=== PATIENT | female | born 1985 | race Caucasian/White ===

== ENCOUNTER 2025-02-17 11:20 | Outpatient (CLI) | payer OTHER, SELFPAY ==
--- NOTE | ~2025-02-17 | MM_ITS ---
EXAMINATION: MM screening [place] [facility] w abdullahi HISTORY: Screening TECHNIQUE: Craniocaudal and mediolateral oblique 3-D tomosynthesis images were obtained and synthetic 2-D images were generated. CAD analysis was submitted and interpreted. COMPARISON: No prior mammogram is available for comparison at this institution. BREAST PARENCHYMAL COMPOSITION: The breasts are extremely dense, which lowers the sensitivity of mammography. FINDINGS: No suspicious calcifications or architectural distortion. Focal asymmetry in the upper left breast at the 12:00 position, posterior depth. In addition, there is an asymmetry in the lower left breast, posterior depth, seen in the left MLO projection. Focal asymmetry in the upper-outer quadrant of the right breast, posterior depth. In addition, there is an asymmetry in the medial right breast, middle depth, seen in the right CC projection. IMPRESSION: 1. Focal asymmetry in the upper left breast at the 12:00 position, posterior depth. In addition, there is an asymmetry in the lower left breast, posterior depth, seen in the left MLO projection. The study is incomplete. A diagnostic mammogram and a diagnostic ultrasound are recommended. 2. Focal asymmetry in the upper-outer quadrant of the right breast, posterior depth. In addition, there is an asymmetry in the medial right breast, middle depth, seen in the right CC projection. The study is incomplete. A diagnostic mammogram and a diagnostic ultrasound are recommended. BI-RADS 0: Incomplete-Need additional imaging evaluation. Reviewed, dictated and finalized at location Q. IMPRESSION: 1. Focal asymmetry in the upper left breast at the 12:00 position, posterior de pth. In addition, there is an asymmetry in the lower left breast, posterior dep th, seen in the left MLO projection. The study is incomplete. A diagnostic mamm ogram and a diagnostic ultrasound are recommended. 2. Focal asymmetry in the upper-outer quadrant of the right breast, posterior d epth. In addition, there is an asymmetry in the medial right breast, middle dep th, seen in the right CC projection. The study is incomplete. A diagnostic mamm ogram and a diagnostic ultrasound are recommended. BI-RADS 0: Incomplete-Need additional imaging evaluation.
== END 2025-02-17 11:21 | disposition home or self-care (01) ==
LOC: MICIMG 11:22
PROVIDERS: PCP Student in an Organized Health Care Education/Training Program; Visit Provider Student in an Organized Health Care Education/Training Program
DX: Z12.31 Encounter for screening mammogram for malignant neoplasm of breast (principal); R92.8 Other abnormal and inconclusive findings on diagnostic imaging of breast
CPT/HCPCS: 77063; 77067

== ENCOUNTER 2025-04-02 07:54 | Outpatient (CLI) | payer OTHER, SELFPAY ==
--- NOTE | ~2025-04-02 | MMUS_ITS ---
EXAMINATION: MM diagnostic [place] [facility] w abdullahi, US breast BI complete HISTORY: Follow-up breast asymmetry TECHNIQUE: Additional 3-D tomosynthesis images of the breasts were performed and synthetic 2-D images were generated. CAD analysis was submitted and interpreted. High resolution bilateral complete breast ultrasound was performed. COMPARISON: Mammogram dated 02/17/2025 BREAST PARENCHYMAL COMPOSITION: Dense: The breasts are heterogeneously dense, which may obscure small masses FINDINGS: MAMMOGRAPHIC FINDINGS: There are no suspicious masses, calcifications or architectural distortion in either breast to suggest malignancy. ULTRASOUND: Complete US of all 4 quadrants of the breast/s and retroareolar region was reviewed. There are bilateral breast cysts. In the right breast at 10:00, 10 cm from the nipple there is a small oval hypoechoic 4 mm mass with echogenic hilum, most likely benign intramammary lymph node. No evidence for malignancy in the left breast. IMPRESSION: 1. Probable benign intramammary lymph node of the right breast at 10:00, 10 cm from the nipple. No evidence for malignancy in the left breast. 2. Recommend 6 month follow-up Limited right breast ultrasound BI-RADS category 3, probably benign findings. Reviewed, dictated and finalized at location C. IMPRESSION: 1. Probable benign intramammary lymph node of the right breast at 10:00, 10 cm from the nipple. No evidence for malignancy in the left breast. 2. Recommend 6 month follow-up Limited right breast ultrasound BI-RADS category 3, probably benign findings.
== END 2025-04-02 07:55 | disposition home or self-care (01) ==
LOC: MICIMG 07:56
PROVIDERS: PCP Student in an Organized Health Care Education/Training Program; Visit Provider Student in an Organized Health Care Education/Training Program
DX: N64.89 Other specified disorders of breast (principal)
CPT/HCPCS: 76641; 77062; 77066; G0279